=== PATIENT | male | born 1985 | race Caucasian/White ===

== ENCOUNTER 2018-10-29 02:42 | Emergency (ER) | payer BC, MEDICAID ==
[~2018-10-29] VITALS: Ht 165.1 cm; Wt 140.6 kg
[~2018-10-29 02:42] MED LIST: ALLO300T2 OR; BUPR150T42; IND25C; LITH300T3; PRO20T PO; ZOLP10TA OR
[2018-10-29] MEDS ORDERED: HALOPERIDOL LACTATE 5 MG/ML INJ VIAL ONE (04:03)
[2018-10-29] MEDS ORDERED: LORazepam 2MG/ML-1ML VIAL ONE (04:03)
[2018-10-29] MEDS ORDERED: diphenhdrAMINE HCL 50 MG/1 ML VL ONE (04:03)
[2018-10-29] MEDS ORDERED: diphenhdrAMINE HCL 50 MG/1 ML VL IM ONE (04:30)
[2018-10-29] MEDS ORDERED: LORazepam 2MG/ML-1ML VIAL IM ONE (04:30)
[2018-10-29] MEDS ORDERED: HALOPERIDOL LACTATE 5 MG/ML INJ VIAL IM ONE (04:30)
[2018-10-29 07:30] LABS: Basophils # (auto) 0 uL; Basophils % (auto) 0.2 % (0.0-2.0); Eosinophils # (auto) 0 uL; Hemoglobin 16.1 g/dL (13.5-17.5); Lymphocytes # (auto) 2.2 uL; Lymphocytes % (auto) 15.3 % (10.0-50.0); Mean Corpuscular Hemoglobin 31.5 pg (28.0-32.0); Mean Corpuscular Hgb Conc. 35.1 g/dL (32.0-36.0); Mean Corpuscular Volume 89.8 fL (80.0-100.0); Monocytes # (auto) 0.7 uL; Monocytes % (auto) 4.8 % (0.0-12.0); Neutrophils # (auto) 11.2 uL; Neutrophils % (auto) 79.7 % (37.0-80.0); Platelet Count (auto) 313 10^3/uL (140-450); Red Blood Cells 5.13 10^6/uL (4.5-5.90); White Blood Cell 14.1 10^3/uL (4.4-10.8)
[2018-10-29 07:48] LABS: Albumin 4.3 g/dL (3.4-5.0); Blood Urea Nitrogen 13 mg/dL (7-18); Calcium 8.8 mg/dL (8.5-10.1); Chloride 107 mmol/L (98-107); Potassium 4.2 mmol/L (3.5-5.1); Sodium 141 mmol/L (136-145)
[2018-10-29 07:51] LABS: Alanine Aminotransferase 81 U/L (16-61); Anion Gap 12 (5-15); Aspartate Aminotransferase 38 U/L (15-37); BUN/Creatinine Ratio 11.9; Blood Alcohol < 3.0 mg/dL (0-5); Carbon Dioxide 22 mmol/L (21-32); GFR African American 100 mL/min; GFR Non-African American 83 mL/min; Glucose 95 mg/dL (74-106); Magnesium 2.4 mg/dL (1.6-2.6)
[2018-10-29 07:53] LABS: Alkaline Phosphatase 102 U/L (45-117); Bilirubin, Total 0.9 mg/dL (0.2-1.0); Salicylate < 1.7 mg/dL (2.8-20.0); Total Protein 8.3 g/dL (6.4-8.2)
[2018-10-29 07:57] LABS: Acetaminophen < 2.0 ug/mL (10-30)
[2018-10-29 09:26] LABS: Alcohol, Urine < 3.0 mg/dL (0-5); Amphetamine Screen, Urine POSITIVE (NEGATIVE); Barbiturate Scree,Urine NEGATIVE (NEGATIVE); Benzodiazephine Screen, Urine NEGATIVE (NEGATIVE); Cocaine Screen, Urine NEGATIVE (NEGATIVE); Opiate Scree,Urine NEGATIVE (NEGATIVE); Phencyclidine Screen, Urine NEGATIVE (NEGATIVE)
[2018-10-29 09:27] LABS: Urine Amorphous Crystal FEW /hpf (None Seen); Urine Bacteria NONE SEEN /hpf (None Seen); Urine Blood TRACE /uL (Negative); Urine Hyaline Cast FEW /lpf (0 - 2); Urine Mucus FEW (None Seen); Urine WBC 2 /hpf (0 - 3)
[2018-10-29 09:34] LABS: Cannabinoid Screen, Urine POSITIVE (NEGATIVE)
[2018-10-29] MEDS ORDERED: SODIUM CHLORIDE 0.9% 1,000 ML IV ONE ×2 (10:15→11:31)
[2018-10-29] MEDS ORDERED: LORazepam 0.5 MG TAB PO ONE (11:45)
[2018-10-29] MEDS ORDERED: METOPROLOL TARTRATE 25 MG TAB PO ONE (15:45)
[2018-10-29] MEDS ORDERED: LORazepam 2MG/ML-1ML VIAL IV ONE (17:45)
[2018-10-29] MEDS ORDERED: METOPROLOL SUCCINATE XL 50 MG TAB PO SCH (22:00)
[2018-10-30 05:20] VITALS: BP 137/93
== END 2018-10-30 06:08 | disposition home or self-care (01) ==
LOC: EDSEX 02:42 → EDBD 02:42 → ER 02:45
DX: F20.9 Schizophrenia, unspecified (principal); Z91.14 Patient's other noncompliance with medication regimen
CPT/HCPCS: 36415; 80053; 80307; 80320; 80329; 81001; 83735; 84443; 85025; 96372; 96374; 99284; J1200; J1630; J2060

== ENCOUNTER 2018-11-09 18:19 | Emergency (ER) | payer MEDICAID ==
[~2018-11-09] VITALS: Ht 185.4 cm; Wt 99.8 kg
[2018-11-09] MEDS ORDERED: SODIUM CHLORIDE 0.9% 500 ML IVB ONE (18:34)
[2018-11-09 19:12] LABS: Basophils # (auto) 0 uL; Basophils % (auto) 0.4 % (0.0-2.0); Eosinophils # (auto) 0.1 uL; Eosinophils % (auto) 0.9 % (0.0-7.0); Hematocrit 43.1 % (41.0-53.0); Hemoglobin 14.9 g/dL (13.5-17.5); Lymphocytes # (auto) 1.4 uL; Lymphocytes % (auto) 14.5 % (10.0-50.0); Mean Corpuscular Hemoglobin 31.3 pg (28.0-32.0); Mean Corpuscular Hgb Conc. 34.7 g/dL (32.0-36.0); Mean Corpuscular Volume 90.1 fL (80.0-100.0); Monocytes # (auto) 0.6 uL; Neutrophils # (auto) 7.8 uL; Neutrophils % (auto) 78.2 % (37.0-80.0); Nucleated Red Blood Cells % 0.1 %; Platelet Count (auto) 307 10^3/uL (140-450); Red Blood Cells 4.78 10^6/uL (4.5-5.90); Red Cell Distribution Width 12.5 % (11.8-14.3); White Blood Cell 9.9 10^3/uL (4.4-10.8)
[2018-11-09 19:36] LABS: Anion Gap 8 (5-15); Blood Alcohol < 3.0 mg/dL (0-5); Blood Urea Nitrogen 12 mg/dL (7-18); Calcium 8.5 mg/dL (8.5-10.1); Carbon Dioxide 24 mmol/L (21-32); Chloride 106 mmol/L (98-107); Glucose 118 mg/dL (74-106); Magnesium 2.6 mg/dL (1.6-2.6); Sodium 138 mmol/L (136-145)
[2018-11-09 19:40] LABS: Alanine Aminotransferase 89 U/L (16-61); Alkaline Phosphatase 93 U/L (45-117); Aspartate Aminotransferase 85 U/L (15-37); BUN/Creatinine Ratio 14.1; Bilirubin, Total 0.7 mg/dL (0.2-1.0); GFR African American 134 mL/min; GFR Non-African American 110 mL/min; Total Protein 7.2 g/dL (6.4-8.2)
[2018-11-09] MEDS ORDERED: HALOPERIDOL LACTATE 5 MG/ML INJ VIAL IM ONE (22:00)
[2018-11-09] MEDS ORDERED: LORazepam 2MG/ML-1ML VIAL IV ONE (22:00)
[2018-11-09] MEDS ORDERED: diphenhdrAMINE HCL 50 MG/1 ML VL IV ONE (22:00)
[2018-11-10 00:05] VITALS: BP 130/82
== END 2018-11-10 00:06 | disposition home or self-care (01) ==
LOC: EDBD 18:19 → ER 18:22
DX: R41.82 Altered mental status, unspecified (principal); F31.9 Bipolar disorder, unspecified; Z79.899 Other long term (current) drug therapy
CPT/HCPCS: 36415; 80053; 80320; 83735; 85025; 94761; 96361; 96372; 96374; 96375; 99285; J1200; J1630; J2060

== ENCOUNTER 2018-11-28 00:58 | Emergency (ER) | payer MEDICAID ==
[~2018-11-28] VITALS: Ht 180.3 cm; Wt 118.4 kg
[2018-11-28 01:52] LABS: Urine Bacteria NONE SEEN /hpf (None Seen); Urine Blood TRACE /uL (Negative); Urine Mucus FEW (None Seen); Urine Specific Gravity 1.017 (1.001-1.035); Urine WBC 1 /hpf (0 - 3)
[2018-11-28 02:02] LABS: Alcohol, Urine < 3.0 mg/dL (0-5); Amphetamine Screen, Urine NEGATIVE (NEGATIVE); Barbiturate Scree,Urine NEGATIVE (NEGATIVE); Benzodiazephine Screen, Urine NEGATIVE (NEGATIVE); Cannabinoid Screen, Urine NEGATIVE (NEGATIVE); Cocaine Screen, Urine NEGATIVE (NEGATIVE); Opiate Scree,Urine NEGATIVE (NEGATIVE); Phencyclidine Screen, Urine NEGATIVE (NEGATIVE)
[2018-11-28 03:05] VITALS: BP 143/62
== END 2018-11-28 06:37 | disposition left against medical advice (07) ==
LOC: ER 00:58
DX: R04.0 Epistaxis (principal); Z53.21 Procedure and treatment not carried out due to patient leaving prior to being seen by health care provider
CPT/HCPCS: 80307; 81001

== ENCOUNTER 2019-03-02 21:14 | Emergency (ER) | payer MEDICAID ==
[~2019-03-02] VITALS: Ht 175.3 cm; Wt 113.4 kg
[2019-03-02 21:30] VITALS: BP 124/84
[2019-03-02 22:10] LABS: Basophils # (auto) 0 uL; Basophils % (auto) 0.6 % (0.0-2.0); Eosinophils # (auto) 0.2 uL; Hematocrit 43.7 % (41.0-53.0); Hemoglobin 14.8 g/dL (13.5-17.5); Lymphocytes # (auto) 2.8 uL; Lymphocytes % (auto) 33.9 % (10.0-50.0); Mean Corpuscular Hemoglobin 30.4 pg (28.0-32.0); Mean Corpuscular Volume 89.6 fL (80.0-100.0); Monocytes # (auto) 0.5 uL; Monocytes % (auto) 6.7 % (0.0-12.0); Neutrophils # (auto) 4.6 uL; Neutrophils % (auto) 56.8 % (37.0-80.0); Nucleated Red Blood Cells % 0.1 %; Platelet Count (auto) 257 10^3/uL (140-450); Red Blood Cells 4.87 10^6/uL (4.5-5.90); Red Cell Distribution Width 13.6 % (11.8-14.3); White Blood Cell 8.1 10^3/uL (4.4-10.8)
[2019-03-02 22:25] LABS: Alanine Aminotransferase 38 U/L (16-61); Albumin 4.1 g/dL (3.4-5.0); Anion Gap 10 (5-15); Aspartate Aminotransferase 19 U/L (15-37); BUN/Creatinine Ratio 16.5; Blood Urea Nitrogen 13 mg/dL (7-18); Calcium 8.7 mg/dL (8.5-10.1); Carbon Dioxide 22 mmol/L (21-32); Chloride 110 mmol/L (98-107); GFR African American 145 mL/min; GFR Non-African American 120 mL/min; Glucose 94 mg/dL (74-106); Potassium 3.9 mmol/L (3.5-5.1); Sodium 142 mmol/L (136-145)
[2019-03-02 22:29] LABS: Alkaline Phosphatase 90 U/L (45-117); Bilirubin, Total 0.4 mg/dL (0.2-1.0); Total Protein 7.9 g/dL (6.4-8.2)
[2019-03-02 23:25] LABS: Urine Bacteria FEW /hpf (None Seen); Urine Blood Negative /uL (Negative); Urine Mucus FEW (None Seen); Urine Specific Gravity 1.038 (1.001-1.035); Urine WBC 1 /hpf (0 - 3)
[2019-03-02 23:40] LABS: Amphetamine Screen, Urine NEGATIVE (NEGATIVE); Barbiturate Scree,Urine NEGATIVE (NEGATIVE); Benzodiazephine Screen, Urine NEGATIVE (NEGATIVE); Cannabinoid Screen, Urine NEGATIVE (NEGATIVE); Cocaine Screen, Urine NEGATIVE (NEGATIVE); Opiate Scree,Urine NEGATIVE (NEGATIVE); Phencyclidine Screen, Urine NEGATIVE (NEGATIVE)
[2019-03-02 23:58] LABS: Alcohol, Urine < 3.0 mg/dL (0-5)
== END 2019-03-03 05:51 | disposition home or self-care (01) ==
LOC: EDBD 21:14 → ER 21:19
DX: M54.5 Low back pain (principal); F41.9 Anxiety disorder, unspecified; M19.90 Unspecified osteoarthritis, unspecified site
CPT/HCPCS: 36415; 80053; 80307; 81001; 84484; 85025